=== PATIENT | female | born 1995 | race Caucasian/White ===

== ENCOUNTER 2018-01-09 05:23 | Emergency (ER) | payer SELFPAY ==
[2018-01-09 05:35] VITALS: BMI 21.4
--- NOTE | 2018-01-09 05:37 | PDOC ---
History of Present Illness - General History Source: Patient Exam Limitations: No Limitations - History of Present Illness Initial Comments: 01/09/18 05:47 The patient is a 22 year old female, with no significant past medical history, who presents to the ED with diffuse abdominal pain beginning two hours ago. The patient states this morning her diffuse abdominal pain woke her up from her sleep. The patient states after waking up she went to use the bathroom and had a normal bowel movement (denies diarrhea, melena or hematochezia) with minimal relief of the abdominal pain. The patient states she tried to make herself vomit but was unable to. The patient states she went out to eat at [employer] last night but is unsure if any of her friends are experiencing similar symptoms. The patient states she is currently on her menstrual period. The patient denies chest pain, shortness of breath, headache and dizziness. Denies fever, chills, nausea, vomit, diarrhea and constipation. Denies dysuria, frequency, urgency and hematuria. Allergies: NKA <Jose Lott - Last Filed: 01/09/18 06:04> <Chichi Dawson - Last Filed: 01/09/18 06:57> - General Chief Complaint: Pain, Acute Stated Complaint: ABD PAIN Time Seen by Provider: 01/09/18 05:36 Past History <Jose Lott - Last Filed: 01/09/18 06:04> - Suicide/Smoking/Psychosocial Hx Smoking History: Never smoked Have you smoked in the past 12 months: No Information on smoking cessation initiated: No Hx Alcohol Use: No Drug/Substance Use Hx: No <Chcihi Dawson - Last Filed: 01/09/18 06:57> - Past Medical History Allergies/Adverse Reactions: Allergies Allergy/AdvReac Type Severity Reaction Status Date / Time No Known Allergies Allergy Verified 01/09/18 05:34 Home Medications: Ambulatory Orders NK [No Known Home Medication] 01/09/18 Review of Systems - Review of Systems Comments:: 01/09/18 05:48 GENERAL/CONSTITUTIONAL: No fever or chills. No weakness. HEAD, EYES, EARS, NOSE AND THROAT: No change in vision. No ear pain or discharge. No sore throat. CARDIOVASCULAR: No chest pain or shortness of breath. RESPIRATORY: No cough, wheezing, or hemoptysis. GASTROINTESTINAL: +Diffuse abdominal pain. No nausea, vomiting, diarrhea or constipation. GENITOURINARY: No dysuria, frequency, or change in urination. MUSCULOSKELETAL: No joint or muscle swelling or pain. No neck or back pain. SKIN: No rash NEUROLOGIC: No headache, vertigo, loss of consciousness, or change in strength/ sensation. ENDOCRINE: No increased thirst. No abnormal weight change. HEMATOLOGIC/LYMPHATIC: No anemia, easy bleeding, or history of blood clots. ALLERGIC/IMMUNOLOGIC: No hives or skin allergy. <Jose Lott - Last Filed: 01/09/18 06:04> *Physical Exam - Vital Signs Last Vital Signs Temp Pulse Resp BP Pulse Ox 98.3 F 77 18 119/65 100 01/09/18 05:34 01/09/18 05:34 01/09/18 05:34 01/09/18 05:34 01/09/18 05:34 - Physical Exam Comments: 01/09/18 05:49 GENERAL: Awake, alert, and fully oriented, in no acute distress HEAD: No signs of trauma EYES: PERRLA, EOMI, sclera anicteric, conjunctiva clear ENT: Auricles normal inspection, hearing grossly normal, nares patent, oropharynx clear without exudates. Moist mucosa NECK: Normal ROM, supple, no lymphadenopathy, JVD, or masses LUNGS: Breath sounds equal, clear to auscultation bilaterally. No wheezes, and no crackles HEART: Regular rate and rhythm, normal S1 and S2, no murmurs, rubs or gallops ABDOMEN: Soft, nontender, normoactive bowel sounds. No guarding, no rebound. No masses EXTREMITIES: Normal range of motion, no edema. No clubbing or cyanosis. No cords, erythema, or tenderness NEUROLOGICAL: Cranial nerves II through XII grossly intact. Normal speech, normal gait SKIN: Warm, Dry, normal turgor, no rashes or lesions noted. <Jose Lott - Last Filed: 01/09/18 06:04> - Vital Signs Last Vital Signs Temp Pulse Resp BP Pulse Ox 98.3 F 77 18 119/65 100 01/09/18 05:34 01/09/18 05:34 01/09/18 05:34 01/09/18 05:34 01/09/18 05:34 <Chichi Dawson - Last Filed: 01/09/18 06:57> Medical Decision Making - Medical Decision Making 01/09/18 06:55 Pt has + urine preg test. We will check labs and type and screen. Pt is A1 -- she was told that she is rh+ when she had the ; however we will check again today. Impression: Threatened Ab. We will sign pt out to the day ER doc. <Chichi Dawson - Last Filed: 01/09/18 06:57> *DC/Admit/Observation/Transfer - Attestations Scribe Attestion: 01/09/18 05:49 Documentation prepared by Jose Lott, acting as medical investigator for Chichi Dawson MD. <Jose Lott - Last Filed: 01/09/18 06:04> - Discharge Dispostion Decision to Admit order: No <Chichi Dawson - Last Filed: 01/09/18 06:57> Diagnosis at time of Disposition: Gastroenteritis - Discharge Dispostion Condition at time of disposition: Stable - Patient Instructions Printed Discharge Instructions: DI for Food Poisoning - Post Discharge Activity Forms/Work/School Notes: Back to Work
[2018-01-09] MEDS ORDERED: MAG HYDROX/AL HYDROX/SIMETH 30 ML UNIT-DOSE CUP PO ONE (05:45)
[2018-01-09] MEDS ORDERED: ONDANSETRON 4 MG TABLET PO ONE (05:45)
[2018-01-09] MEDS ORDERED: ONDANSETRON *ODT* 4 MG TABLET ONE (06:07)
[2018-01-09] MEDS ORDERED: MAG HYDROX/AL HYDROX/SIMETH 30 ML UNIT-DOSE CUP ONE (06:07)
[2018-01-09 07:35] LABS: BASO % 0.3 % (0-2.0); EOS % 0.9 % (0-4.5); HEMATOCRIT 36.3 % (32.4-45.2); HEMOGLOBIN 12.7 GM/dL (10.7-15.3); LYMPH % 20.7 % (8-40); MCH 30.7 pg (25.7-33.7); MCHC 34.9 g/dl (32.0-36.0); MEAN PLT VOLUME 7.5 fl (7.5-11.1); MONO % 8.7 % (3.8-10.2); NEUT % 69.4 % (42.8-82.8); PLATELET COUNT 392 K/MM3 (134-434); RBC 4.12 M/mm3 (3.60-5.2); RDW 13.1 % (11.6-15.6)
[2018-01-09 08:16] LABS: ALBUMIN 4.1 g/dl (3.4-5.0); ALK PHOS 65 U/L (45-117); ANION GAP 4 (8-16); BILIRUBIN,TOTAL 0.5 mg/dL (0.2-1.0); BLOOD UREA NITROGEN 8 mg/dL (7-18); CALCIUM 9.6 mg/dL (8.5-10.1); CHLORIDE 105 mmol/L (98-107); CO2 26 mmol/L (21-32); CREATININE 0.6 mg/dL (0.55-1.02); GLUCOSE,RANDOM 90 mg/dL (74-106); POTASSIUM 4.1 mmol/L (3.5-5.1); SGOT/AST 35 U/L (15-37); SGPT/ALT 59 U/L (12-78); SODIUM 135 mmol/L (136-145); TOT PROT 7.9 g/dl (6.4-8.2)
--- NOTE | 2018-01-09 08:37 | PDOC ---
*Physical Exam - Vital Signs Last Vital Signs Temp Pulse Resp BP Pulse Ox 98.3 F 77 18 119/65 100 01/09/18 05:34 01/09/18 05:34 01/09/18 05:34 01/09/18 05:34 01/09/18 05:34 - Physical Exam General Appearance: Yes: Nourished Neck: positive: Trachea midline Respiratory/Chest: positive: Chest Tender, Lungs Clear, Normal Breath Sounds Cardiovascular: positive: Regular Rhythm, Regular Rate, S1, S2 Gastrointestinal/Abdominal: positive: Normal Bowel Sounds, Tender (mild suprapubic ttp. no rebound no guarding. ) Musculoskeletal: positive: Normal Inspection. negative: CVA Tenderness Extremity: positive: Normal Capillary Refill, Normal Inspection Integumentary: positive: Normal Color, Dry, Warm Neurologic: positive: Fully Oriented, Alert, Normal Mood/Affect ED Treatment Course - LABORATORY CBC & Chemistry Diagram: 01/09/18 07:14 01/09/18 07:14 - ADDITIONAL ORDERS Additional order review: Laboratory Results 01/09/18 01/09/18 01/09/18 07:14 07:14 06:54 Sodium 135 L Potassium 4.1 Chloride 105 Carbon Dioxide 26 Anion Gap 4 L BUN 8 Creatinine 0.6 Creat Clearance w eGFR > 60 Random Glucose 90 Calcium 9.6 Total Bilirubin 0.5 AST 35 ALT 59 Alkaline Phosphatase 65 Total Protein 7.9 Albumin 4.1 Beta HCG, Quant 77112.4 Urine HCG, Qual Blood Type A POSITIVE Antibody Screen Negative 01/09/18 06:10 Sodium Potassium Chloride Carbon Dioxide Anion Gap BUN Creatinine Creat Clearance w eGFR Random Glucose Calcium Total Bilirubin AST ALT Alkaline Phosphatase Total Protein Albumin Beta HCG, Quant Urine HCG, Qual Positive Blood Type Antibody Screen 01/09/18 07:14 RBC 4.12 MCV 88.0 MCHC 34.9 RDW 13.1 MPV 7.5 Neutrophils % 69.4 Lymphocytes % 20.7 Monocytes % 8.7 Eosinophils % 0.9 Basophils % 0.3 - RADIOLOGY Radiology Studies Ordered: Category Date Time Status TRANSVAGINAL US PREG [US] Stat Ultrasound 01/09/18 07:55 Ordered - Medications Given in the ED: ED Medications Discontinued Medications Generic Name Dose Route Start Last Admin Trade Name Freq PRN Reason Stop Dose Admin Al Hydroxide/Mg Hydroxide 30 ml 01/09/18 05:45 01/09/18 06:11 Mylanta Oral Suspension - PO 01/09/18 05:46 30 ml ONCE ONE Administration Ondansetron HCl 4 mg 01/09/18 05:45 01/09/18 06:11 Zofran - PO 01/09/18 05:46 4 mg ONCE ONE Administration Medical Decision Making - Medical Decision Making 01/09/18 08:35 assumed care of pt at 7 am,, signed out from DR. Dawson. 22 yo F here with c/o abd pain, nausea, incidently . unknown . lmp in october, unsure as h/o irregular periods. started as spotting, today now bleeding like normal period. no h/o ectopic. on exam min suprapubic ttp. no rebound no guarding. plan tvus r/o ectopic vs. threatened or incomplete ab. labs, and blood type. 01/09/18 08:37 a positive. blood type. 01/09/18 09:56 radiology us with 9 wk 3 day iup, FHR 176 bpm . no free fluid . pt informed. tolerating po give copy of labs dc home. blood type Rh positive *DC/Admit/Observation/Transfer Diagnosis at time of Disposition: Gastroenteritis, Threatened - Discharge Dispostion Disposition: HOME Condition at time of disposition: Improved Decision to Admit order: No - Referrals Referrals: Jake Gaines MD [Staff Physician] - - Patient Instructions Printed Discharge Instructions: DI for Food Poisoning, Medications and , Threatened Additional Instructions: nothing per vagina until bleeding stops. you have a live intrauterine measuring 9 wks and 3 days by length of fetus. a normal heart rate is visualized at 176 beats/ minute. you should follow up with obstetrics and gynecology for care. on alcohol or motrin during pregancy. be sure to eat frequency and lots of fluids. return for intractable vomiting. persistant bleeding or any concerns. your blood type is a positive. - Post Discharge Activity Forms/Work/School Notes: Back to Work
[2018-01-09 09:33] VITALS: BP 105/69; PULSE 68; TEMP 97.9
== END 2018-01-09 10:04 | disposition home or self-care (01) ==
LOC: JER 05:23
DX: O26.891 Other specified pregnancy related conditions, first trimester (principal); O20.0 Threatened abortion; K52.9 Noninfective gastroenteritis and colitis, unspecified; Z3A.09 9 weeks gestation of pregnancy
CPT/HCPCS: 36415; 76801-TC; 80053; 84702; 84703; 85025; 86850; 86900; 86901; 99283-25